=== PATIENT | female | born 1980 ===

== ENCOUNTER → 2024-07-21 10:18 | Outpatient (CLI) | payer OTHER ==
[2024-07-21 10:56] LABS: HEMATOCRIT 36.7 % (36.0-45.00); HEMOGLOBIN 12.4 g/dL (12.0-15.00); MEAN CELL VOLUME 89.9 fL (80.00-100.00); MEAN CORPUSCULAR HEMOGLOBIN 30.5 pg (27.00-32.0); MEAN CORPUSCULAR HGB CONC 33.9 g/dl (32.0-36.0); PLATELET COUNT 308 K/uL (150-450); RED BLOOD COUNT 4.08 M/uL (4.00-6.00); RED CELL DISTRIBUTION WIDTH 13.5 % (11.5-14.5)
[2024-07-21 12:00] LABS: MYCOPLASMA PNEUMONIAE IGM NON REACTIVE (NO REACTIVE)
== END | disposition home or self-care (01) ==
LOC: LAB 10:18
PROVIDERS: ATTEND General Practice
DX: D64.9 Anemia, unspecified (principal); R05.9 Cough, unspecified; J11.1 Influenza due to unidentified influenza virus with other respiratory manifestations; J20.9 Acute bronchitis, unspecified

== ENCOUNTER 2024-10-12 07:09 | Outpatient (CLI) | payer OTHER | END 2024-10-12 07:16 | disposition home or self-care (01) | LOC: MAMO-SONO 07:09 | PROVIDERS: ATTEND General Practice | DX: Z12.31 Encounter for screening mammogram for malignant neoplasm of breast (principal); N60.29 Fibroadenosis of unspecified breast ==

== ENCOUNTER → 2024-10-12 08:23 | Outpatient (CLI) | payer OTHER ==
[2024-10-12 10:38] LABS: HEMATOCRIT 37.6 % (36.0-45.00); HEMOGLOBIN 12.7 g/dL (12.0-15.00); MEAN CELL VOLUME 89.5 fL (80.00-100.00); MEAN CORPUSCULAR HEMOGLOBIN 30.2 pg (27.00-32.0); MEAN CORPUSCULAR HGB CONC 33.8 g/dl (32.0-36.0); PLATELET COUNT 267 K/uL (150-450); RED BLOOD COUNT 4.21 M/uL (4.00-6.00)
[2024-10-12 11:06] LABS: PH,URINE 7.5 (5.0-8.0); URINE APPEARANCE Clear; URINE BILIRRUBIN Negative (NEGATIVE); URINE BLOOD NHT; URINE COLOR Yellow; URINE GLUCOSE Negative (NEGATIVE); URINE KETONE Negative (NEGATIVE); URINE LEUKOCYTE Negative; URINE NITRATE Negative; URINE PROTEIN Negative (NEGATIVE); URINE UROBILINOGEN 0.2 E.U./dl
[2024-10-12 11:13] LABS: URINE BACTERIA 500.4 uL (0.0-1933); URINE EPITHELIAL CELLS 6.9 uL (0.0-38.8); URINE RBC 94.8 uL (0.0-20.8); URINE WBC 1.8 uL (0.0-23.2)
[2024-10-12 11:41] LABS: ALBUMIN 3.4 gm/dL (3.4-5.0); BILIRUBIN TOTAL 0.49 mg/dL (0.3-1.2); CALCIUM 8.9 mg/dL (8.5-10.1); CHOL HDL RATIO 2.1 (0-5.0); CREATININE SERUM 0.63 mg/dL (0.55-1.02); GFR 104.14; GLOBULINA 4.3 G/DL (2.4-3.5); POTASSIUM 4.49 mEq/L (3.5-5.1); TOTAL PROTEIN 7.7 gm/dL (6.4-8.2); TSH 0.673 uIU/mL (0.358-3.74)
== END | disposition home or self-care (01) ==
LOC: LAB 08:23
PROVIDERS: ATTEND General Practice
DX: E21.3 Hyperparathyroidism, unspecified (principal); I10 Essential (primary) hypertension; E78.5 Hyperlipidemia, unspecified; R80.8 Other proteinuria; N39.0 Urinary tract infection, site not specified; R19.5 Other fecal abnormalities; E03.9 Hypothyroidism, unspecified; E55.9 Vitamin D deficiency, unspecified; E11.65 Type 2 diabetes mellitus with hyperglycemia; I11.9 Hypertensive heart disease without heart failure

== ENCOUNTER 2025-02-27 07:17 | Outpatient (CLI) | payer OTHER | END 2025-02-27 07:20 | disposition home or self-care (01) | LOC: SONOGRAMA 07:17 | PROVIDERS: ATTEND Internal Medicine | DX: N20.0 Calculus of kidney (principal) ==

== ENCOUNTER → 2025-03-24 07:39 | Outpatient (CLI) | payer OTHER ==
[2025-03-24 09:33] LABS: URINE APPEARANCE Clear; URINE BILIRRUBIN Negative (NEGATIVE); URINE BLOOD Small; URINE COLOR Yellow; URINE GLUCOSE Negative (NEGATIVE); URINE KETONE Negative (NEGATIVE); URINE LEUKOCYTE Negative; URINE NITRATE Negative; URINE PROTEIN Negative (NEGATIVE); URINE UROBILINOGEN 0.2 E.U./dl
[2025-03-24 09:36] LABS: URINE BACTERIA 86.3 uL (0.0-1933); URINE EPITHELIAL CELLS 3.2 uL (0.0-38.8); URINE RBC 82.8 uL (0.0-20.8); URINE WBC 2.1 uL (0.0-23.2)
[2025-03-24 09:40] LABS: BASO % 0.8 % (0.1-1.2); EOS # 0.15 (0.04-0.54); EOS % 3.1 % (0.7-7.0); LYMPH # 1.92 (1.18-3.74); LYMPH % 39.9 % (19.3-53.1); MEAN PLATELET VOLUME 10.40 fl (9.4-12.4); MONO # 0.57 (0.24-0.82); MONO % 11.9 % (4.7-12.5); NEUT # 2.12 (1.56-6.13); NEUT % 44.1 % (34.0-71.1); RED CELL DISTRIBUTION WIDTH 13.4 % (11.6-14.4)
[2025-03-24 09:41] LABS: URINE CAST 0.00 uL (0.0-1.40)
[2025-03-24 10:32] LABS: BUN CREA RATIO 21.0 (7.0-25.0); CHOL HDL RATIO 2.2 (0-5.0); CREATININE SERUM 0.63 mg/dL (0.55-1.02); GFR 103.63; GLUCOSE FASTING 81.0 mg/dL (65-100); HDL 87.0 mg/dl (40-60); LDL 96.0 mg/dl (0-130); OSMOLALITY SERUM 280.0 MOSM/KG (275-295); TSH 0.636 uIU/mL (0.358-3.74); VLDL 9.0 (0-39)
== END | disposition home or self-care (01) ==
LOC: LAB 07:39
PROVIDERS: ATTEND Internal Medicine
DX: D50.9 Iron deficiency anemia, unspecified (principal); R79.9 Abnormal finding of blood chemistry, unspecified; E78.5 Hyperlipidemia, unspecified; N39.0 Urinary tract infection, site not specified; Z13.29 Encounter for screening for other suspected endocrine disorder; R94.6 Abnormal results of thyroid function studies; Z13.1 Encounter for screening for diabetes mellitus